=== PATIENT | female | born 1995 | race Hispanic/Latino ===

== ENCOUNTER 2018-02-12 13:56 | Emergency (ER) | payer OTHER ==
[2018-02-12 14:21] LABS: APPEARANCE,URINE CLEAR (CLEAR); BILIRUBIN,URINE NEGATIVE (NEGATIVE); COLOR,URINE YELLOW (YELLOW); GLUCOSE, URINE (UA) NEGATIVE (NEGATIVE); KETONES,URINE NEGATIVE (NEGATIVE); LEUKOCYTE ESTERASE ,URINE NEGATIVE (NEGATIVE); NITRATE,URINE NEGATIVE (NEGATIVE); OCCULT BLOOD,URINE NEGATIVE (NEGATIVE); PROTEIN,URINE NEGATIVE (NEGATIVE); UROBILINOGEN,URINE 0.2 mg/dL (0.2-1.0)
[2018-02-12 14:27] LABS: HCG,QUAL RESULT NEGATIVE (NEGATIVE)
[2018-02-12 14:29] LABS: AMPHET/METH SCREEN,URINE NEGATIVE (NEGATIVE); BARBITURATE SCREEN, URINE NEGATIVE (NEGATIVE); BENZODIAZEPINES SCREEN,URINE NEGATIVE (NEGATIVE); CANNABINOID SCREEN,URINE NEGATIVE (NEGATIVE); COCAINE SCREEN,URINE NEGATIVE (NEGATIVE); OPIATE SCREEN,URINE NEGATIVE (NEGATIVE); PHENCYCLIDINE SCREEN,URINE NEGATIVE (NEGATIVE)
[2018-02-12 14:43] LABS: BASOPHILS % (AUTO) 0.5 % (0.0-5.0); EOSINOPHILS % (AUTO) 0.5 % (0.0-8.0); MEAN CORPUSCULAR HEMOGLOBIN 31.5 pg (27.0-33.0); MEAN CORPUSCULAR HGB CONC 34.2 g/dL (32.0-36.0); MEAN CORPUSCULAR VOLUME 92.2 fL (80-100); MONOCYTES % (AUTO) 5.6 % (3.0-13.0); NEUTROPHILS % (AUTO) 76.4 % (40.0-77.0); PLATELET COUNT (AUTO) 176 K/uL (130-400); RED BLOOD CELL COUNT(AUTO) 4.67 MIL/uL (4.00-5.50); RED CELL DISTRIBUTION WIDTH 12.3 % (11.0-15.5); WHITE BLOOD COUNT (AUTO) 9.2 K/uL (4.8-10.8)
[2018-02-12 14:52] LABS: CREATININE 0.7 mg/dL (0.5-1.5); POTASSIUM 4.2 mmol/L (3.5-5.1)
[2018-02-12 14:57] LABS: ALBUMIN 4.3 g/dL (3.5-5.0); BILIRUBIN,TOTAL 0.2 mg/dL (0.2-1.0); TOTAL PROTEIN, SERUM 8.7 g/dL (6.0-8.3)
[2018-02-12 15:03] LABS: INR 0.89 (0.85-1.15); PARTIAL THROMBOPLASTIN TIME 22.9 SEC (26.3-35.5); PROTHROMBIN TIME 9.4 SEC (9.6-11.6)
[2018-02-12] MEDS ORDERED: SODIUM CHLORIDE 0.9% 1000ML 1,000 ML IV ONE (15:36)
[2018-02-12] MEDS ORDERED: KETOROLAC TROMETHAMINE 30MG/ML ONE (15:36)
== END 2018-02-12 16:50 | disposition home or self-care (01) ==
LOC: EDH 13:56
DX: R10.13 Epigastric pain (principal); R50.9 Fever, unspecified; J02.9 Acute pharyngitis, unspecified; R11.0 Nausea; Q96.9 Turner's syndrome, unspecified
CPT/HCPCS: 36415; 80053; 80305; 81003; 81025; 82550; 83690; 84484; 85025; 85610; 85730; 87804 ×2; 87880; 93005; 96374; 99285; J1885; J7030

== ENCOUNTER 2018-09-06 00:34 | Emergency (ER) | payer MEDICAID ==
[2018-09-06 01:43] LABS: BASOPHILS % (AUTO) 0.3 % (0.0-5.0); EOSINOPHILS % (AUTO) 0.2 % (0.0-8.0); HEMATOCRIT 42.1 % (36-48); LYMPHOCYTES % (AUTO) 12.7 % (21.0-51.0); MEAN CORPUSCULAR HEMOGLOBIN 32.1 pg (27.0-33.0); MEAN CORPUSCULAR HGB CONC 35.1 g/dL (32.0-36.0); MEAN CORPUSCULAR VOLUME 91.3 fL (79-99); MONOCYTES % (AUTO) 3.7 % (3.0-13.0); NEUTROPHILS % (AUTO) 83.1 % (40.0-77.0); PLATELET COUNT (AUTO) 173 K/uL (130-400); RED BLOOD CELL COUNT(AUTO) 4.61 MIL/uL (4.00-5.50); RED CELL DISTRIBUTION WIDTH 12.3 % (11.0-15.5); WHITE BLOOD COUNT (AUTO) 10.2 K/uL (4.8-10.8)
[2018-09-06] MEDS ORDERED: SODIUM CHLORIDE 0.9% 1000ML 1,000 ML IV ONE (01:51)
[2018-09-06 01:52] LABS: CREATININE 0.8 mg/dL (0.5-1.5); POTASSIUM 4.1 mmol/L (3.5-5.1)
[2018-09-06] MEDS ORDERED: ONDANSETRON HCL 4 MG/2 ML VIAL ONE (01:52)
[2018-09-06 02:01] LABS: BILIRUBIN,URINE Negative (NEGATIVE); COLOR,URINE Yellow (YELLOW); GLUCOSE, URINE (UA) Negative (NEGATIVE); KETONES,URINE Negative (NEGATIVE); LEUKOCYTE ESTERASE ,URINE Large (NEGATIVE); NITRATE,URINE Negative (NEGATIVE); OCCULT BLOOD,URINE Negative (NEGATIVE); PROTEIN,URINE Trace mg/dL (NEGATIVE); UROBILINOGEN,URINE 0.2 mg/dL (0.2-1.0)
[2018-09-06 02:02] LABS: APPEARANCE,URINE SLIGHTLY CLOUDY (CLEAR)
[2018-09-06 02:03] LABS: HCG,QUAL RESULT NEGATIVE (NEGATIVE)
[2018-09-06 02:06] LABS: RBC,URINE 0-1 /HPF (0-1)
[2018-09-06 02:07] LABS: BACTERIA,URINE Rare /HPF (None Seen); SQUAMOUS EPITHELIAL CELL,UR Rare /HPF (0-2)
[2018-09-06] MEDS ORDERED: NAPROXEN 500 MG TABLET ONE (03:15)
== END 2018-09-06 03:51 | disposition home or self-care (01) ==
LOC: EDH 00:34
DX: R51 Headache (principal); R11.2 Nausea with vomiting, unspecified
CPT/HCPCS: 36415; 80048; 81001; 81025; 85025; 96361; 96374; 99284; J2405; J7030

== ENCOUNTER 2024-02-10 06:52 | Day surgery (SDC) | payer MEDICAID ==
[~2024-02-10] VITALS: Ht 147.3 cm; Wt 58.1 kg
[2024-02-10] VITALS (10 sets, daily range): BP systolic 92–134; BP diastolic 55–92; PULSE 60–70; RESP 12–17; TEMP 96.7–97.2
[~2024-02-10 06:52] MED LIST: IBUP-2070 PO; ONDA-243 PO
[2024-02-10] MEDS ORDERED: SUMA25TA9 PO (08:25)
[2024-02-10] MEDS ORDERED: PROG200C11 PO (08:25)
[2024-02-10] MEDS ORDERED: TOPI25TA48 PO (08:25)
[2024-02-10] MEDS ORDERED: FOLI0.8C PO (08:25)
[2024-02-10] MEDS ORDERED: LEVO100C4 PO (08:25)
[2024-02-10] MEDS ORDERED: ESTR1PAT TD (08:25)
[2024-02-10] MEDS: 0.9%NACL 1000ML 1,000 ML IV ONE (08:39)
[2024-02-10] MEDS ORDERED: proPOFol 10 MG/ML 20ML VIAL IV ONE (11:01)
--- NOTE | 2024-02-10 12:11 | NUR ---
Patient aox4. Denies c/o pain or discomfort. Voiced understanding to EGD precautions and follow up expectations. Ambulated to bathroom with standby assist. Voided large amount of clear urine. PIV discontinued with catheter tip intact. Full and complete Discharge instructions given to Patient and Family. All questions answered. W/C to POV with Family to Home.
== END 2024-02-10 12:20 | disposition home or self-care (01) ==
LOC: DAH 06:52
PROVIDERS: ATTEND Internal Medicine Gastroenterology
DX: R63.4 Abnormal weight loss (principal); K29.70 Gastritis, unspecified, without bleeding; B96.81 Helicobacter pylori [H. pylori] as the cause of diseases classified elsewhere; G47.30 Sleep apnea, unspecified; Q96.9 Turner's syndrome, unspecified; Z79.899 Other long term (current) drug therapy
CPT/HCPCS: 81025; 43239; J7030; J2704; A4620; A4215; J3490